=== PATIENT | male | born 1990 | race Caucasian/White ===

== ENCOUNTER 2018-11-08 01:58 | Emergency (ER) | payer OTHER | END 2018-11-08 05:17 | disposition home or self-care (01) | LOC: JER 01:58 ==

== ENCOUNTER 2020-07-08 04:22 | Emergency (ER) | payer OTHER ==
[2020-07-08 04:48] VITALS: BP 134/73; PULSE 109; TEMP 100.4; BMI 29.5
[2020-07-08] MEDS ORDERED: SODIUM CHLORIDE 0.9% 500 ML INFUS.BAG IV ONE (05:15)
[2020-07-08] MEDS ORDERED: TETRACAINE/BENZOCAINE/BUTAMBEN 20 GM SPR TP ONE (05:16)
[2020-07-08 05:35] LABS: BASO % 0.8 % (0-2.0); EOS % 2.2 % (0-4.5); HEMATOCRIT 44.6 % (35.4-49); HEMOGLOBIN 15.3 GM/dL (11.7-16.9); LYMPH % 25.9 % (8-40); MCHC 34.3 g/dl (32.0-35.9); MEAN CELL VOLUME 78.7 fl (80-96); MEAN PLT VOLUME 8.4 fl (7.5-11.1); MONO % 9.3 % (3.8-10.2); NEUT % 61.8 % (42.8-82.8); PLATELET COUNT 336 K/MM3 (134-434); RBC 5.67 M/mm3 (4.00-5.60); WHITE BLOOD COUNT 9.8 K/mm3 (4.0-10.0)
[2020-07-08] MEDS ORDERED: ACETAMINOPHEN 1000 MG/100 ML VIAL (NON FORMULARY) IVPB ONE (05:53)
[2020-07-08 05:55] LABS: CALCIUM 9.6 mg/dL (8.5-10.1)
[2020-07-08 05:56] LABS: ALBUMIN 4.1 g/dl (3.4-5.0); BLOOD UREA NITROGEN 11.2 mg/dL (7-18)
[2020-07-08] MEDS ORDERED: ACETAMINOPHEN INJECTION 100 ML IVPB ONE (05:56)
[2020-07-08 06:00] LABS: BILIRUBIN,TOTAL 0.6 mg/dL (0.2-1)
== END 2020-07-08 06:13 | disposition home or self-care (01) ==
LOC: JER 04:22
PROC: 3E0233Z Introduction of Anti-inflammatory into Muscle, Percutaneous Approach (ICD-10-PCS; principal; 2020-07-08)
DX: J02.9 Acute pharyngitis, unspecified (principal)
CPT/HCPCS: 36415; 80053; 85025; 99284-25; J0131

== ENCOUNTER 2020-07-13 03:50 | Emergency (ER) | payer OTHER ==
[2020-07-13 03:55] VITALS: BP 118/77; PULSE 100; TEMP 98.8; BMI 27.6
[2020-07-13] MEDS ORDERED: LIDOCAINE VISCOUS 2% ORAL/TOP 20 ML UNIT-DOSE CUP MM ONE (04:12)
[2020-07-13] MEDS ORDERED: LIDOCAINE VISCOUS 2% ORAL/TOP 20 ML UNIT-DOSE CUP ONE (04:14)
[2020-07-13 05:08] LABS: BASO % 0.6 % (0-2.0); EOS % 1.6 % (0-4.5); HEMATOCRIT 42.1 % (35.4-49); HEMOGLOBIN 14.5 GM/dL (11.7-16.9); LYMPH % 26.5 % (8-40); MCH 26.8 pg (25.7-33.7); MCHC 34.5 g/dl (32.0-35.9); MEAN CELL VOLUME 77.8 fl (80-96); MEAN PLT VOLUME 8.8 fl (7.5-11.1); MONO % 11.8 % (3.8-10.2); NEUT % 59.5 % (42.8-82.8); PLATELET COUNT 336 K/MM3 (134-434); RBC 5.41 M/mm3 (4.00-5.60); RDW 12.6 % (11.9-15.9); WHITE BLOOD COUNT 7.5 K/mm3 (4.0-10.0)
[2020-07-13] MEDS ORDERED: SODIUM CHLORIDE 0.9% 500 ML INFUS.BAG IV ONE (05:11)
[2020-07-13 05:23] LABS: INR 1.18 (0.83-1.09); PROTHROMBIN TIME (PATIENT) 14.5 SEC (9.7-13.0)
[2020-07-13 05:28] LABS: ALBUMIN 3.7 g/dl (3.4-5.0); BLOOD UREA NITROGEN 15.4 mg/dL (7-18); CALCIUM 9.7 mg/dL (8.5-10.1)
[2020-07-13 05:32] LABS: CREATININE 1.2 mg/dL (0.55-1.3)
[2020-07-13 05:33] LABS: BILIRUBIN,TOTAL 0.6 mg/dL (0.2-1)
== END 2020-07-13 05:50 | disposition home or self-care (01) ==
LOC: JER 03:50
DX: R04.2 Hemoptysis (principal); K91.840 Postprocedural hemorrhage of a digestive system organ or structure following a digestive system procedure
CPT/HCPCS: 36415; 80053; 85025; 85610; 99284-25

== ENCOUNTER 2023-05-20 04:11 | Day surgery (SDC) | payer OTHER ==
[2023-05-14 15:36] VITALS: BMI 32.8
[2023-05-20] MEDS ORDERED: LIDOCAINE 1%/EPI 1:100000 (20 ML MULTI DOSE VIAL) ONE (09:36)
[2023-05-20] MEDS ORDERED: ONDANSETRON 4 MG/2 ML VIAL IVPUSH PRN (10:29)
[2023-05-20] MEDS ORDERED: oxyCODONE HCL 5 MG TABLET PO PRN (10:29)
[2023-05-20] MEDS ORDERED: MIDAZOLAM HCL 2 MG/2 ML SINGLE DOSE VIAL ONE (10:33)
[2023-05-20] MEDS ORDERED: PROPOFOL 40 ML ONE (10:33)
[2023-05-20] MEDS: ceFAZolin SODIUM 1 GM VIAL IVPB ONE (10:42)
[2023-05-20] MEDS: OXYMETAZOLINE 0.05% NASAL SOLUTION 15 ML BOTTLE NS ONE (10:57)
[2023-05-20] MEDS: LIDOCAINE 1%/EPI 1:100000 (20 ML MULTI DOSE VIAL) IJ ONE ×2 (10:57→11:36)
[2023-05-20] MEDS ORDERED: BACITRACIN ZINC 15 GM TUBE TOPICAL OINTMENT ONE (11:06)
[2023-05-20] MEDS ORDERED: LABETALOL HCL 20 MG/4 ML VIAL ONE (11:22)
[2023-05-20] MEDS ORDERED: GLYCOPYRROLATE 0.2 MG/1 ML VIAL ONE (11:42)
[2023-05-20] MEDS: LACTATED RINGERS SOLUTION 1,000 ML IV SCH (14:25)
[2023-05-20 15:29] VITALS: BP 108/74; PULSE 97; RESP 16; TEMP 97.7
== END 2023-05-20 16:00 | disposition home or self-care (01) ==
LOC: JASU-SURG 04:11
PROVIDERS: ATTEND Otolaryngology
PROC: 09TL7ZZ Resection of Nasal Turbinate, Via Natural or Artificial Opening (ICD-10-PCS; 2023-05-20)
PROC: 09BM8ZZ Excision of Nasal Septum, Via Natural or Artificial Opening Endoscopic (ICD-10-PCS; principal; 2023-05-20 10:00)
DX: J34.2 Deviated nasal septum (principal); J34.3 Hypertrophy of nasal turbinates
CPT/HCPCS: 88304-TC; 94760

== ENCOUNTER 2023-07-08 22:38 | Emergency (ER) | payer OTHER ==
[2023-07-08 22:45] VITALS: BP 130/87; PULSE 87; RESP 20; TEMP 98.5; BMI 33.3
[2023-07-08] MEDS ORDERED: ACETAMINOPHEN 325 MG TABLET (FP) ONE (23:27)
[2023-07-08] MEDS: ACETAMINOPHEN 500 MG TABLET (FP) PO ONE (23:30)
== END 2023-07-09 00:07 | disposition home or self-care (01) ==
LOC: JER 22:38
DX: S49.91XA Unspecified injury of right shoulder and upper arm, initial encounter (principal); W01.0XXA Fall on same level from slipping, tripping and stumbling without subsequent striking against object, initial encounter
CPT/HCPCS: 73030-TC-RT-FY; 99283-25